=== PATIENT | male | born 1970 | race Caucasian/White ===

== ENCOUNTER 2018-07-21 06:05 | Emergency (ER) | payer MEDICAID, OTHER ==
[~2018-07-21] VITALS: Ht 177.8 cm; Wt 74.0 kg
[~2018-07-21 06:05] MED LIST: LEVO100T74 PO; LEVO125T5 PO; NAPR-685 PO; NAPR-850 PO; OXYC-306 PO; SEROQUEL PO; SERT100T PO; WELLBUTRIN PO; ZOLOFT; oxycodone PO
--- NOTE | 2018-07-21 06:10 | NUR ---
Pt bib remsa for rlq abdominal pain that he states has been going on for months. pt was diagnosed last month with a uti. pt states that he did not take abx because they would interfere with his drinking habit. pt in [facility] in [facility]. pt attached to vs machines. vss. misty villa at for pt hx and assessment. pt verbalizes understanding of er process and poc. call light is within reach.
[2018-07-21] MEDS ORDERED: KETOROLAC 30 MG/1 ML ONE (06:29)
[2018-07-21] MEDS ORDERED: ONDANSETRON ODT 4 MG ONE (06:29)
[2018-07-21] MEDS ORDERED: KETOROLAC 30 MG/1 ML IM ONE (06:30)
[2018-07-21] MEDS ORDERED: ONDANSETRON ODT 4 MG PO ONE (06:30)
--- NOTE | 2018-07-21 06:30 | NUR ---
pt medicated per mar.
[2018-07-21 06:43] LABS: BASOPHILS # (AUTO) 0.06 x10^3/uL (0-0.1); BASOPHILS % (AUTO) 0 % (0-1); EOSINOPHILS # (AUTO) 0.07 x10^3/uL (0-0.4); EOSINOPHILS % (AUTO) 1 % (1-7); LYMPHOCYTES # (AUTO) 1.06 x10^3/uL (1-3.4); LYMPHOCYTES % (AUTO) 7 % (22-44); MD NO; MEAN CORPUSCULAR HEMOGLOBIN 32.9 pg (27.5-34.5); MEAN CORPUSCULAR HGB CONC 34.1 g/dL (33.2-36.2); MEAN CORPUSCULAR VOLUME 96.5 fL (81-97); MONOCYTES # (AUTO) 1.05 x10^3/uL (0.2-0.8); MONOCYTES % (AUTO) 7 % (2-9); NEUTROPHILS # (AUTO) 12.52 x10^3/uL (1.8-6.8); NEUTROPHILS % (AUTO) 85 % (42-75); PLATELET COUNT 257 x10^3/uL (130-400); RED BLOOD COUNT 4.03 x10^6/uL (4.38-5.82); RED CELL DISTRIBUTION WIDTH 14.2 % (9.4-14.8)
[2018-07-21 06:50] LABS: ALBUMIN 3.9 g/dL (3.4-5.0); ANION GAP 9 mmol/L (5-15); CALCIUM 8.7 mg/dL (8.5-10.1); CHLORIDE 98 mmol/L (98-107); CREATININE 1.88 mg/dL (0.7-1.3)
--- NOTE | 2018-07-21 06:55 | NUR ---
received report form Mansoor. pt upright on gurney sleeping, NAD with equal chest rise/fall, no needs at this time, call light within reach.
--- NOTE | 2018-07-21 06:56 | NUR ---
report of pt to rory julian. all questions answered.
--- NOTE | 2018-07-21 07:05 | NUR ---
pt to US
--- NOTE | 2018-07-21 07:20 | NUR ---
pt returned from [facility]
[2018-07-21] MEDS ORDERED: CEFTRIAXONE 250 MG IM ONE (08:00)
--- NOTE | 2018-07-21 08:05 | NUR ---
pt remains upright on gurney sleeping, responds to verbal stimuli, NAD, no needs at this time, call light within reach.
[2018-07-21] MEDS ORDERED: CEFTRIAXONE 250 MG ONE (08:07)
[2018-07-21] MEDS ORDERED: AZITHROMYCIN 500 MG TABLET ONE (08:07)
[2018-07-21] MEDS ORDERED: AZITHROMYCIN 500 MG TABLET PO SCH (09:00)
--- NOTE | 2018-07-21 09:04 | NUR ---
pt laying on gurney with eyes closed, responds approp to staff, NAD, comfort measures provided, sheila light within reach.
[2018-07-21 09:23] LABS: CULTURE INDICATED? YES
[2018-07-21 09:30] LABS: MICROSCOPIC AUTO
[2018-07-21 09:54] VITALS: BP 113/80
--- NOTE | 2018-07-21 10:34 | NUR ---
pt given shoes and then discharged. pt up ambulatory and stable.
== END 2018-07-21 10:37 | disposition home or self-care (01) ==
LOC: ED 10:12
DX: N45.1 Epididymitis (principal); N30.00 Acute cystitis without hematuria; F10.129 Alcohol abuse with intoxication, unspecified; F15.10 Other stimulant abuse, uncomplicated; F17.200 Nicotine dependence, unspecified, uncomplicated
CPT/HCPCS: 36415; 76870; 80048; 81001; 82040; 85025; 87077; 87086; 87186; 87491; 87591; 96372; 99284; J0696; J1885; Q0162

== ENCOUNTER 2018-12-24 09:09 | Emergency (ER) | payer MEDICAID ==
[~2018-12-24] VITALS: Ht 165.1 cm; Wt 63.0 kg
--- NOTE | 2018-12-24 09:31 | NUR ---
NA X 1
[2018-12-24 09:35] VITALS: BP 108/76
--- NOTE | 2018-12-24 09:41 | NUR ---
PT REFUSING TO BE TAKEN TO TREATMENT ROOM. PT STATES "I JUST DON'T WANT TO BE SEEN NOW." PT LEFT TRIAGE ROOM WITH ALL PERSONAL BELONGINGS.
== END 2018-12-24 09:43 | disposition left against medical advice (07) ==
LOC: ED 09:37
DX: Z53.21 Procedure and treatment not carried out due to patient leaving prior to being seen by health care provider (principal)